=== PATIENT | female | born 1945 | race Caucasian/White ===

== ENCOUNTER 2019-09-28 06:00 | Outpatient (RCR) | payer MEDICARE, OTHER, SELFPAY | END 2019-10-28 00:01 | LOC: APT 06:00 | PROVIDERS: Visit Provider Psychiatry & Neurology Neurology | DX: M48.02 Spinal stenosis, cervical region (principal); M54.2 Cervicalgia | CPT/HCPCS: 97110 ×7; 97140 ×2; 97002 ==

== ENCOUNTER 2019-10-29 06:00 | Outpatient (RCR) | payer MEDICARE, OTHER, SELFPAY | END 2019-11-28 23:59 | disposition home or self-care (01) | LOC: APT 06:00 | PROVIDERS: Referring Provider Psychiatry & Neurology Neurology; Visit Provider Psychiatry & Neurology Neurology | DX: M48.02 Spinal stenosis, cervical region (principal) | CPT/HCPCS: 97002; 97110; 97530 ==

== ENCOUNTER → 2021-06-13 15:55 | Outpatient (BNVA) | payer MEDICARE, OTHER, SELFPAY | PROVIDERS: Visit Provider Nurse Practitioner Family | DX: Z20.822 Contact with and (suspected) exposure to COVID-19 (principal); J98.8 Other specified respiratory disorders | CPT/HCPCS: 87635 ==

== ENCOUNTER 2021-06-18 18:46 | Inpatient (IN) | payer MEDICARE, OTHER, SELFPAY ==
[2021-06-18] VITALS (14 sets, daily range): BP systolic 133–213; BP diastolic 85–102; PULSE 70–83; RESP 15–23; O2SAT 91–96; BMI 31.4
[2021-06-18 20:10] LABS: Add Urine Microscopic? NO; Basophils % 0.2 %; Charge for UA Resulting for Rev; Eosinophils # 0.1 10^3/uL (0.0-0.8); Eosinophils % 0.4 %; Hematocrit 42.7 % (37.0-47.0); Hemoglobin 14.4 g/dL (11.5-15.3); Lymphocytes # 1.1 10^3/uL (0.8-4.8); Lymphocytes % 8.8 %; Mean Corpuscular HGB Conc 33.7 g/dL (30.0-36.0); Mean Corpuscular Hemoglobin 30.4 pg (28.0-34.0); Mean Corpuscular Volume 90.1 fl (81-99); Mean Platelet Volume 9.2 fL (7.4-10.4); Monocytes # 1.1 10^3/uL (0.2-0.9); Monocytes % 8.5 %; Neutrophils # 10.15 10^3/uL (1.8-7.7); Nucleated Red Blood Cells % 0 %; Platelet Count 280 10^3/cmm (130-400); Red Blood Count 4.74 10^6/uL (4.1-5.3); Red Cell Distribution Width 12.7 % (12.1-15.1); White Blood Count 12.5 10^3/uL (4.0-10.0)
[2021-06-18 20:11] LABS: Bilirubin Urine Neg (Negative); Blood Urine Neg (Negative); Glucose Urine UA Norm (Normal); Ketones Urine Negative (Negative); Leukocyte Esterase Urine Negative (Negative); Nitrate Urine Negative (Negative); Protein Urine Neg (Negative); Specific Gravity, Urine 1.005 (1.005-1.030); Urine Appearance Clear (CLEAR); Urine Color Yellow (Yellow); Urobilinogen Urine Norm (Negative); pH Urine 7 (5-7)
[2021-06-18 20:21] LABS: Alanine Aminotransferase 11 U/L (0-33); Albumin Level 3.6 g/dL (3.5-5.2); Alkaline Phosphatase 107 IU/L (35-105); Anion Gap 17.2 (5-19); Aspartate Amino Transferase 20 U/L (0-32); Blood Urea Nitrogen 14 mg/dL (8-23); Calcium 8.3 mg/dL (8.5-10.5); Carbon Dioxide 23 mmol/L (22-29); Chloride 87 mmol/L (98-107); Creatinine Clr Calc Pharmacy 63.3292; Globulin 3.5 g/dL (1.3-4.6); Glucose 169 mg/dL (65-115); Osmolality Calculated 260 mOsm/kg (285-295); Potassium 4.2 mmol/L (3.5-5.1); Sodium 123 mmol/L (136-145); Total Bilirubin 0.4 mg/dL (0.15-1.2); Total Protein 7.1 g/dL (6.6-8.7)
[2021-06-18] MEDS: ondansetron 2 mg/ML SDV 2 mL 4 MG IVP (20:47)
--- NOTE | 2021-06-18 21:36 | W.ED.GENADLT ---
HPI - General Adult General: Chief complaint: Weakness Stated complaint: COVID +; WEAKNESS Time Seen by Provider: 06/18/21 19:16 History of Present Illness: HPI narrative: HPI: This is a [76] yo patient w/ no signifcant PMH presenting to the ED with COVID symptoms x 9 days (diagnosed 5 days ago). Patient denies any shortness of breath or dyspnea. Patient reports decreased PO intake, nausea and decreased appetite. Reports contact with covid positive patients. Denies cough, malaise, generalized weakness, chest pain, N/V, diaphoresis, exertional shortness of breath, or complaints. Denies any pleuritic chest pain, recent surgery/immobilization/travel, or hematemesis or hx of VTE in the past. Onset: 9 days ago Duration: ongoing for the last 9 days Location: home Severity: None Review of Systems Narrative: Constitutional: No subjective fever, no generalized weakness HEENT: No vision changes CV: No chest pain, no palpitations PULM: no cough, no dyspnea. GI: No abdominal pain, +N/-V/-D. +decreased appetite : No dysuria MSKEL: No muscle pain SKIN: No new rashes, no lesions. NEURO: No headache, no focal weakness. HEME: No visible bruises PSYCH: Normal mood PFSH ED PFSH: Social History Smoking and tobacco status: never smoked Second hand smoke exposure: No Smoking risk assessment/counseling performed?: Yes Alcohol intake: never Desire information about alcohol rehabilitation?: No Counseling given: Yes Desire information about substance/drug rehabilitation?: No Counseling given: Yes Adopted: No Caregiver/support person: No Lives independently: Yes Household members: spouse Housing: House Physical Exam Narrative: EXAM NARRATIVE: Head: Atraumatic Eyes: PERRL, conjunctiva without injection ENT: Mucous membrane moist NECK: Supple without lymphadenopathy LUNGS: Clear lung sounds, no crackles/wheezes/rhonchi on exam CV: RRR ABDOMEN: Soft, nontender in all quadrants, no guarding or rebound tenderness EXTREMITY: Normal ROM SKIN: No rash or erythema NEURO: Awake and alert. No focal motor deficits. PSYCH: Normal mood and affect. Course Vital Signs: Vital signs: Vital Signs Pulse Rate 75 06/18/21 21:43 Respiratory Rate 18 06/18/21 21:43 Blood Pressure 160/93 06/18/21 21:43 Pulse Oximetry 95 06/18/21 21:47 MDM - General Adult MDM Narrative: Medical decision making narrative: [76]yo patient presenting to the ED with request medication for nauea and decreased appetite. No increased work of breath or dyspnea. Intervention: zofran and PO challenge [9:48] On reassessment, patient continues to in in respiratory distress without any increased work of breathing. O2 sats occasionally dips to the low 90s. Offered oxygen at home but patient declined citnig that she has portable pulse ox at home and will come back to the ER if the number continues to be persistently below 95%. Patient tolerated p.o. after Zofran in the emergency room. No suspicion for other acute pathologies at this time. Discussed plan with patient who agrees today. Sodium is noted to be 123. I have discussed this finding with patient and offer admission however patient declined today. Patient is AAO x3, understands the implication of going home today including the need for oxygen and possible shortness of breath. Patient still elects to go home at this time. Disposition: Discharge. Strict return instructions discussed at bedside including any signs of respiratory distress, dehydration, persistent fever, or any new or concerning symptoms. Patient in agreement with the plan and reassures me that the patient will follow up a primary care provider in 24-48 hrs for revaluation for any concerns or other issues. Lab Data: Labs: Lab Results 06/18/21 06/18/21 06/18/21 Range/Units 19:50 19:50 19:50 WBC 12.5 H (4.0-10.0) 10^3/ uL RBC 4.74 (4.1-5.3) 10^6/u L Hgb 14.4 (11.5-15.3) g/dL Hct 42.7 (37.0-47.0) % MCV 90.1 (81-99) fl MCH 30.4 (28.0-34.0) pg MCHC 33.7 (30.0-36.0) g/dL RDW 12.7 (12.1-15.1) % Plt Count 280 (130-400) 10^3/c mm MPV 9.2 (7.4-10.4) fL Neut % (Auto) 81.0 % Lymph % (Auto) 8.8 % [place] % (Auto) 8.5 % Eos % (Auto) 0.4 % Baso % (Auto) 0.2 % Neut # (Auto) 10.15 H (1.8-7.7) 10^3/u L Lymph # (Auto) 1.1 (0.8-4.8) 10^3/u L [place] # (Auto) 1.1 H (0.2-0.9) 10^3/u L Eos # (Auto) 0.1 (0.0-0.8) 10^3/u L Baso # (Auto) 0.0 (0.0-0.1) 10^3/u L Nucleated RBC % (a uto) 0 % Nucleated RBCs # 0.0 /100WBC Sodium 123 L (136-145) mmol/L Potassium 4.2 (3.5-5.1) mmol/L Chloride 87 L (98-107) mmol/L Carbon Dioxide 23 (22-29) mmol/L Anion Gap 17.2 (5-19) BUN 14 (8-23) mg/dL Creatinine 0.6 (0.5-0.9) mg/dL GFR Calculation Not Reportable Glucose 169 H (65-115) mg/dL Calculated Osmolal ity 260 L (285-295) mOsm/k g Calcium 8.3 L (8.5-10.5) mg/dL Total Bilirubin 0.4 (0.15-1.2) mg/dL AST 20 (0-32) U/L ALT 11 (0-33) U/L Alkaline Phosphata se 107 H (35-105) IU/L Total Protein 7.1 (6.6-8.7) g/dL Albumin 3.6 (3.5-5.2) g/dL Globulin 3.5 (1.3-4.6) g/dL Urine Color Yellow (Yellow) Urine Appearance Clear (CLEAR) Urine pH 7 (5-7) Ur Specific Gravit y 1.005 (1.005-1.030) Urine Protein Neg (Negative) Urine Glucose (UA) Norm (Normal) Urine Ketones Negative (Negative) Urine Blood Neg (Negative) Urine Nitrate Negative (Negative) Urine Bilirubin Neg (Negative) Urine Urobilinogen Norm (Negative) mg/dL Ur Leukocyte [place] ase Negative (Negative) Discharge Plan Discharge Patient Disposition: Home Clinical Impression: COVID-19 Condition: Stable Prescriptions: New Zofran 4 mg tablet 4 mg PO Q8H PRN (Reason: nausea and vomiting) 4 Days RF: 0 No Action levofloxacin 500 mg tablet 500 mg PO DAILY 5 Days Qty: 5 RF: 0 albuterol sulfate [ProAir HFA] 90 mcg/actuation HFA aerosol inhaler 2 puff inhalation QID PRN (Reason: shortness of breath or wheezing) Qty: 6.7 RF: 0 benzonatate 200 mg capsule 200 mg PO TID PRN (Reason: cough) 10 Days Qty: 30 RF: 0 dexamethasone 6 mg tablet 6 mg PO DAILY 5 Days Qty: 5 RF: 0 Discharge Orders: Discharge ED (Routine); Ordered 06/18/21 Ordered By: Luciano Nuñez Referrals: Trace Javed MD [Primary Care Provider] - Discharge Diet: Usual diet Discharge Activity: Resume usual activity Patient Instructions: Severe Acute Respiratory Syndrome (SARS) (ED) Activity Restrictions/Additional Instructions: Followup with your PCP on 06/23. Please come back to the ED if you have any worsening symptoms of shortness of breath, fever/chill, nuasea/vomiting or any new or concerning symptoms. 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
--- NOTE | 2021-06-18 23:16 | PC.NURSE ---
while getting in wheelchair to leave patient complained she felt hot and lost consciousness. no fall, pulled to bed by staff. once on monitor, SR, HTN. reported to MD. EKG done, IV placed in right hand
[2021-06-18] MEDS: sodium chloride 0.9% 1,000 ML 999 ML IV (23:25)
[2021-06-19] VITALS (15 sets, daily range): BP systolic 135–170; BP diastolic 70–97; PULSE 74–92; RESP 16–24; TEMP 36.7–37.4; O2SAT 73–96
--- NOTE | 2021-06-19 02:30 | XRR_ITS ---
PROCEDURE INFORMATION: Exam: XR Chest Exam date and time: 06/19/2021 2:30 AM Age: 76 years old Clinical indication: Dyspnea; Additional info: SOB TECHNIQUE: Imaging protocol: XR of the chest. Views: 1 view. COMPARISON: No relevant prior studies available. FINDINGS: Lungs: There are low lung volumes. Otherwise, the lungs are clear. Pleural spaces: Unremarkable. No pleural effusion. No pneumothorax. Heart/Mediastinum: There is mild cardiomegaly. Bones/joints: Unremarkable. Soft tissues: Examination limited by body habitus. XR/XR chest 1V portable [id number] IMPRESSION: 1. Examination limited by body habitus. 2. Mild cardiomegaly. 3. There are low lung volumes. Otherwise, the lungs are clear.
[2021-06-19] MEDS: ondansetron 2 mg/ML SDV 2 mL 4 MG IVP (03:47)
--- NOTE | 2021-06-19 03:48 | P.HP_ITS ---
Providers/Chief Complaint Admitting Physician: Kim Joel Primary Care Provider: Trace Javed MD Chief Complaint: COVID +; WEAKNESS History of Present Illness Parris Pereira is a 76 year old female who presented to the emergency room with chief complaint of weakness. She was diagnosed with COVID-19 on June 13 with symptoms starting a few days before that. Her had contracted Covid first. She received her first dose of Moderna vaccine on June 06. Over the last few days she has been extremely weak. She andre not felt like eating or drinking much of anything and in fact has not taken in much oral intake. She may have some loss of taste and smell but she is not certain. She has had nausea and a few episodes of vomiting. Denied any diarrhea. She has had a mild cough but no shortness of breath. She has been watching her oxygen levels and they have not been low. She denies any chest pain. Denies sore throat or runny nose. She has not had any significant fevers that she is aware of. In the emergency room she received some Zofran and was given some oral liquids. Laboratory studies were checked and showed low sodium. She was initially offered consideration for admission but declined. She was being discharged from the emergency room and when she tried to get up she almost passed out. She was requiring assistance to stand and transfer. Her blood pressures were actually elevated as high as 200s over 100s around the time that this occurred. Given her near syncope, clinical dehydration, hyponatremia and hypertension, she is being admitted overnight for further evaluation and monitoring. Mrs. Pereira has been prescribed medications for her blood pressures in the past but has not been taking them regularly. She is also prescribed cholesterol medication. Review of Systems Const: Reports: body aches, change in appetite, fatigue and malaise; Denies: fever(s) or chills Eyes: Denies: blurry vision ENMT: Reports: other (loss of taste and smell); Denies: throat pain or nasal congestion Card: Reports: lightheadedness; Denies: chest pain, palpitations or edema Resp: Reports: dyspnea and non-productive cough; Denies: productive cough, wheezing, pain on inspiration, hemoptysis or chest congestion GI: Reports: nausea and vomiting; Denies: abdominal pain, hematemesis, diarrhea or constipation : Denies: difficulty voiding Musc: Reports: muscle weakness; Denies: joint redness, joint warmth or muscle cramps Skin/Breast: Denies: rash or sores Neuro: Reports: headache(s), weakness in extremities (general rather than focal) and dizziness; Denies: numbness in extremities, difficulty walking, difficulty communicating thoughts or involuntary movements Psych: Denies: anxiety Dennis/Lymph: Denies: easy bruising or easy bleeding Medications/Allergies Home Medications Medication Instructions Recorded Confirmed Last Taken Type albuterol sulfate 90 mcg/actuation 2 puff INHALATION QID PRN #6.7 g 06/13/21 06/13/21 Unknown Rx aerosol inhaler benzonatate 200 mg capsule 200 mg PO TID PRN 10 Days #30 cap 06/13/21 06/13/21 Unknown Rx dexamethasone 6 mg tablet 6 mg PO DAILY 5 Days #5 tab 06/13/21 06/13/21 Unknown Rx levofloxacin 500 mg tablet 500 mg PO DAILY 5 Days #5 tab 06/13/21 06/13/21 Unknown Rx ondansetron HCl [Zofran] 4 mg PO Q8H PRN 4 Days tab 06/18/21 Unknown Rx Allergies Allergy/AdvReac Type Severity Reaction Status Date / Time Penicillins Allergy Unknown Verified 06/13/21 16:04 Sulfa (Sulfonamide Allergy Unknown Verified 06/13/21 16:04 Antibiotics) PFSH Acute PFSH: Medical History (Updated 06/19/21 @ 07:55 by Kim Joel MD) 3 para 3 Hyperlipidemia Hypertension Osteoarthritis Surgical History (Updated 06/19/21 @ 07:48 by Kim Joel MD) History of hysterectomy Family History (Updated 06/19/21 @ 07:48 by Kim Joel MD) Denies family history of CAD (coronary artery disease) Social History (Updated 06/19/21 @ 04:46 by Kim Joel MD) Smoking and tobacco status: never smoked Second hand smoke exposure: No Alcohol intake: never Substance/Drug Use: never Adopted: No Caregiver/support person: No Lives independently: Yes Household members: spouse Housing: House Marital status: Vitals/I&O/Wt Last Vital Signs Pulse 80 06/19/21 03:21 Resp 20 H 06/19/21 03:21 BP 160/97 06/19/21 03:21 Pulse Ox 91 06/19/21 03:21 Weight last 48 hrs Weight 83.007 kg Physical Exam Narrative: EXAM NARRATIVE: Constitutional: alert, ill appearing HEENT: normocephalic, conjunctive are injected, nasopharynx without obvious rhinorrhea, mucous membranes dry Neck: supple Respiratory: Clear to auscultation bilaterally without any rales rhonchi or wheezes noted, not tachypneic nor with any retractions Cardiovascular: regular rhythm, no murmurs, 2+ radial pulses Abdomen: soft, non tender, positive bowel sounds Extremities: no edema, no cyanosis Skin: dry, no rashes or bruising Neuro: face symmetric, speech soft but clear, moves all extremities but is quite generally weak Psych: cooperative Data : 06/18/21 19:50 06/18/21 19:50 Other data: .. A&P Assessment and plan (1) Weakness generalized: Status: Acute (2) Near syncope: Status: Acute (3) Hyponatremia: Status: Acute (4) Dehydration: Status: Acute (5) Hypertension: Has been on medication in the past but not currently taking; may be related to steroid therapy started outpatient Status: Acute Qualifiers: Hypertension type: essential hypertension Qualified Code(s): I10 - Essential (primary) hypertension (6) COVID-19: Status: Acute (7) COVID-19 vaccine second dose not administered: Moderna 1st dose given 06/06/2021 Status: Acute Additional A&P Information Hyperglycemia without a history of diabetes, suspect due to steroids Observation admission Status post Regeneron 06/19 Received IV fluids in the emergency room, holding further fluids until repeat labs are done Serial cardiac enzymes and EKGs Telemetry monitoring Check orthostatics Had been on lisinopril and hczt in past for BP; will start on amlodipine currently given hyponatremia With hyperglycemia and hypertension, will hold further steroids for now Status post a 5-day course of oral Levaquin Recheck electrolytes Check inflammatory zafar Monitor for acute changes needing intervention Supportive care otherwise also with COVID though not in ED/admitted yet Plans discussed with patient and she was given an opportunity to answer questions Full Code Attestations Medical Necessity Statement*: Anticipate stay less than 2 midnights in this lady with COVID-19 who experienced a syncopal episode in the emergency room. She is quite weak and has been since her Covid started. She was noted to have significant elevation in blood pressures. She does have hypertension but does not look to have been on her medications recently. In addition she had a low sodium level. She will be jemima tored with plans as noted above. 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
--- NOTE | 2021-06-19 07:47 | ECG_ITS ---
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 Measurements Intervals [place] Rate: 91 P: 45 MI: 140 QRS: -4 QRSD: 91 T: 62 QT: 364 QTc: 450 Interpretive Statements SINUS RHYTHM INFERIOR MYOCARDIAL INFARCTION , PROBABLY OLD [40+ ms Q WAVE AND/OR ST/T ABNORMALITY IN II/aVF] No previous ECG available for comparison Electronically Signed On 06-20-2021 13:12:15 CDT by Michelle Hernandez M.D. [id number]
[2021-06-19] MEDS: enoxaparin 40 mg/0.4 mL Syringe SUBCUT (08:44)
[2021-06-19] MEDS: amlodipine 5 mg Tablet 2.5 MG PO (08:45)
[2021-06-19] MEDS: pantoprazole DR 40 mg Tablet PO (08:45)
--- NOTE | 2021-06-19 09:47 | ECG_ITS ---
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 Measurements Intervals [place] Rate: 88 P: 47 NC: 137 QRS: 5 QRSD: 89 T: 55 QT: 376 QTc: 455 Interpretive Statements SINUS RHYTHM POSSIBLE ANTERIOR MYOCARDIAL INFARCTION , PROBABLY OLD [30 ms Q WAVE IN V3/V4, OR R < 0.2 mV IN V4] INFERIOR MYOCARDIAL INFARCTION , PROBABLY OLD [40+ ms Q WAVE AND/OR ST/T ABNORMALITY IN II/aVF] Compared to ECG 06/19/2021 10:12:38 No significant changes Electronically Signed On 06-20-2021 13:27:14 CDT by Michelle Hernandez M.D. [email or web address] [id number]
[2021-06-19] MEDS: zinc gluconate 50 mg Tablet PO (09:57)
[2021-06-19] MEDS: cholecalciferol (vitamin D3) 1,000 unit Tablet 1000 UNIT PO (09:57)
[2021-06-19] MEDS: ascorbic acid 500 mg Tablet PO (09:57)
[2021-06-19] MEDS: dexamethasone 10 mg/mL INJ 6 MG IVP (10:35)
[2021-06-19 10:55] LABS: Basophils % 0.2 %; Hemoglobin 13.9 g/dL (11.5-15.3); Lymphocytes # 0.7 10^3/uL (0.8-4.8); Lymphocytes % 4.6 %; Mean Corpuscular HGB Conc 33.9 g/dL (30.0-36.0); Mean Corpuscular Hemoglobin 30.3 pg (28.0-34.0); Mean Corpuscular Volume 89.5 fl (81-99); Mean Platelet Volume 9.3 fL (7.4-10.4); Monocytes # 0.9 10^3/uL (0.2-0.9); Monocytes % 5.9 %; Neutrophils # 13.18 10^3/uL (1.8-7.7); Neutrophils % 88.2 %; Nucleated Red Blood Cells % 0 %; Platelet Count 252 10^3/cmm (130-400); Red Blood Count 4.58 10^6/uL (4.1-5.3); Red Cell Distribution Width 12.6 % (12.1-15.1); White Blood Count 14.9 10^3/uL (4.0-10.0)
--- NOTE | 2021-06-19 11:17 | PC.NURSE ---
patient was not able to stand. nurse present at that time
[2021-06-19 11:25] LABS: Troponin(5th) Baseline 8 ng/L (0-10)
[2021-06-19 11:54] LABS: NT Pro B Type Natriuretic Pept 197 pg/mL (0-450); Procalcitonin 0.06 ng/mL (0-0.5)
[2021-06-19 12:05] LABS: Anion Gap 20.8 (5-19); Blood Urea Nitrogen 10 mg/dL (8-23); C Reactive Protein 30.4 mg/L (0.0-4.9); Calcium 7.9 mg/dL (8.5-10.5); Carbon Dioxide 17 mmol/L (22-29); Chloride 85 mmol/L (98-107); Creatine Phosphokinase 45 U/L (26-192); Creatinine Clr Calc Pharmacy 63.3292; Ferritin 451 ng/mL (15-150); Glucose 141 mg/dL (65-115); Lactate Dehydrogenase 228 U/L (135-214); Magnesium 1.4 mg/dL (1.7-2.3); Osmolality Calculated 249 mOsm/kg (285-295); Phosphorus 2.2 mg/dL (2.5-4.5); Potassium 3.8 mmol/L (3.5-5.1)
[2021-06-19 12:18] LABS: Sodium 119 mmol/L (136-145)
[2021-06-19 12:22] LABS: Lactate (Lactic Acid level) 0.9 mmol/L (0.5-2.2)
--- NOTE | 2021-06-19 12:29 | PM.PN ---
Subjective Subjective: Interval history: 76-year-old female presented to emergency room with complaints of weakness. Diagnosed with COVID-19 June 13. Received 1 dose of Moderna on June 06. The patient was noted to have a near syncopal episode as well as low sodium and high PT. She continues to have significant weakness. Sodium slightly worse today. Afebrile Medications: Reviewed: Yes Vitals/I&O/Wt Last Vital Signs Temp 99.3 F 06/19/21 08:00 Pulse 90 06/19/21 11:30 Resp 22 H 06/19/21 08:00 BP 153/87 06/19/21 09:00 Pulse Ox 92 06/19/21 11:30 06/18/21 06/19/21 06/19/21 22:59 06:59 14:59 Intake Total 1060 / 1060 Balance 1060 / 1060 Weight last 48 hrs Weight 183 lb Physical Exam Const: GENERAL APPEARANCE: ill appearing ORIENTATION/CONSCIOUSNESS: Yes awake Chest: COMMONS NORMALS: normal inspection of the chest Resp: COMMON NORMALS: normal respiratory effort and No retractions Cardio: COMMON NORMALS: regular rate and regular rhythm RATE: regular rate RHYTHM: regular rhythm GI: COMMON NORMALS: Soft to palpation and non-tender PALPATION: Yes Soft to palpation and No Tenderness to palpation present (GI) Skin: COMMON NORMALS: no rashes or lesions noted GENERAL SKIN EXAM: no rashes or lesions noted Data : 06/19/21 10:25 06/19/21 10:25 Micro: Microbiology 06/19/21 10:31 Blood Culture - Preliminary Blood SPECIMEN COLLECTED 06/19/21 10:25 Blood Culture - Preliminary Blood SPECIMEN COLLECTED A&P Assessment and plan (1) COVID-19 vaccine second dose not administered: Status: Acute (2) Weakness generalized: Status: Acute (3) Hypertension: Status: Acute Qualifiers: Hypertension type: essential hypertension Qualified Code(s): I10 - Essential (primary) hypertension (4) Near syncope: Status: Acute (5) Dehydration: Status: Acute (6) Hyponatremia: Status: Acute (7) COVID-19: Status: Acute (8) Elevated INR: Status: Acute Additional A&P Information #weakness --likely multifactorial, including recent Covid 19 infection, hyponatremia, electrolyte abnormalities --add B12, folate level --PT --check TSH --receiving decadron #hyponatremia --add NS, add Salt tablets --repeat BMP this afternoon #hypophosphatemia --replace #hypomagnesemia --replace #Covid 19 infection --Status post Regeneron 06/19 --sats stable on RA, sats dropping during sleeping --add Vitamin D, C, Zinc #elevated PT --check INR, PTT --hold Lovenox Attestations Medical Necessity Statement*: Parris Pereira's hospital stay will require greater than 2 midnights for covid 19 Coding Level of Care Code Acute 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
[2021-06-19] MEDS: sodium chloride 0.9% 1,000 ML 75 ML IV (13:20)
--- NOTE | 2021-06-19 13:47 | ECG_ITS ---
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 Measurements Intervals [place] Rate: 82 P: 45 MT: 140 QRS: -5 QRSD: 94 T: 58 QT: 401 QTc: 471 Interpretive Statements SINUS RHYTHM LOW QRS VOLTAGE IN PRECORDIAL LEADS [QRS DEFLECTION < 1.0 mV IN CHEST LEADS] INFERIOR MYOCARDIAL INFARCTION , PROBABLY OLD [40+ ms Q WAVE AND/OR ST/T ABNORMALITY IN II/aVF] Compared to ECG 06/19/2021 11:25:18 Low QRS voltage now present Myocardial infarct finding still present Electronically Signed On 06-20-2021 13:21:49 CDT by Michelle Hernandez M.D. [id number]
[2021-06-19 14:29] LABS: D Dimer 1.37 ug/mIFEU (0-0.59); Fibrinogen 543 mg/dL (174-498); INR 1.04 (0.8-1.2); Partial Thromboplastin Time 35.3 SECONDS (23.9-36.7)
[2021-06-19 14:35] LABS: Troponin 5 2HR 9.37 ng/L (0-10); Troponin 5 2HR Delta 1.37 ABS# (0-10)
[2021-06-19 14:48] LABS: Folate Level 15.2 ng/mL (4.8-37.3)
[2021-06-19 14:49] LABS: Thyroid Stimulating Hormone 0.59 uIU/mL (0.27-4.20); Vitamin B12 722 pg/mL (232-1245)
[2021-06-19 17:15] LABS: Troponin 5 6HR 6.94 ng/L (0-10)
[2021-06-19 17:20] LABS: Blood Urea Nitrogen 10 mg/dL (8-23); Calcium 7.7 mg/dL (8.5-10.5); Carbon Dioxide 19 mmol/L (22-29); Chloride 89 mmol/L (98-107); Creatinine Clr Calc Pharmacy 63.3292; Glucose 236 mg/dL (65-115); Osmolality Calculated 259 mOsm/kg (285-295); Sodium 121 mmol/L (136-145)
[2021-06-19 17:25] LABS: Troponin 5 6HR Delta -1.06 ng/L (0-12)
[2021-06-19 17:27] LABS: Anion Gap 16.8 (5-19)
[2021-06-19 17:28] LABS: Potassium 3.8 mmol/L (3.5-5.1)
[2021-06-19] MEDS: magnesium oxide 400 mg tablet PO (18:19)
[2021-06-19] MEDS: sodium chloride 1 gm Tablet PO (18:19)
[2021-06-19] MEDS: phosphorus 250 mg Tablet PO (18:19)
[2021-06-20] VITALS (8 sets, daily range): BP systolic 141–158; BP diastolic 84–95; PULSE 72–94; RESP 18–26; TEMP 36.6–36.8; O2SAT 92–95
[2021-06-20] MEDS: sodium chloride 0.9% 1,000 ML 75 ML IV ×2 (01:49→17:58)
[2021-06-20 06:17] LABS: Basophils % 0.4 %; Eosinophils % 0.2 %; Hematocrit 40.6 % (37.0-47.0); Lymphocytes # 0.6 10^3/uL (0.8-4.8); Lymphocytes % 10.8 %; Mean Corpuscular Hemoglobin 30.2 pg (28.0-34.0); Mean Corpuscular Volume 94.2 fl (81-99); Mean Platelet Volume 9.6 fL (7.4-10.4); Monocytes # 0.5 10^3/uL (0.2-0.9); Monocytes % 9.7 %; Neutrophils # 4.32 10^3/uL (1.8-7.7); Neutrophils % 77.3 %; Nucleated Red Blood Cells % 0 %; Platelet Count 197 10^3/cmm (130-400); Red Blood Count 4.31 10^6/uL (4.1-5.3); Red Cell Distribution Width 12.8 % (12.1-15.1); White Blood Count 5.6 10^3/uL (4.0-10.0)
[2021-06-20 06:45] LABS: Alanine Aminotransferase 10 U/L (0-33); Albumin Level 2.8 g/dL (3.5-5.2); Alkaline Phosphatase 82 IU/L (35-105); Blood Urea Nitrogen 11 mg/dL (8-23); Carbon Dioxide 21 mmol/L (22-29); Chloride 95 mmol/L (98-107); Creatinine Clr Calc Pharmacy 63.3292; Globulin 3.2 g/dL (1.3-4.6); Glucose 184 mg/dL (65-115); Osmolality Calculated 264 mOsm/kg (285-295); Sodium 125 mmol/L (136-145); Total Bilirubin 0.3 mg/dL (0.15-1.2)
[2021-06-20 06:46] LABS: Anion Gap 13.2 (5-19); Aspartate Amino Transferase 19 U/L (0-32); Potassium 4.2 mmol/L (3.5-5.1)
[2021-06-20 07:02] LABS: C Reactive Protein 73.2 mg/L (0.0-4.9); Magnesium 1.6 mg/dL (1.7-2.3); Phosphorus 2.5 mg/dL (2.5-4.5)
--- NOTE | 2021-06-20 08:49 | PC.CHAP ---
Pastoral Care Encounter/Spiritual Assessment Type of Contact [] Declined dean of education visit [] Patient/Family/Request visit [] Outpatient visit [] Follow-up visit [] Physician referral [] Code/Alert [x] Routine visit [] Staff referral [] Actively dying [] Patient sleeping [] Family support [] [] Out of room [] Palliative care [] [] Receiving care in room [] Pre-surgical visit [] Trauma [] Long length of stay [] ICU visit x] Other: 2a Relational/Emotional Strength [] Patient feels connected with others/family/visitors/staff [] Distress [] Loneliness/isolation [] Abandonment Spirituality of Patient [] Person of Anisha [] Attends Methodist of their Anisha [] Believes in Prayer [] Reads Bible or Christianity materials [] There are Spiritual issues to be addressed Crate Builder Interventions [x] Prayer [] Active listening [] Non-anxious presence [] Spiritual/emotional support [] Crisis/trauma care [] Spiritual counseling [] Bereavement support [] Provided bereavement packet [] Provided Bible/devotional materials [] Provided toy/stuffed animal, coloring book to patient or family member [] Provided Communion [] Anointing/Sublimity [] Salvation [x] Completed spiritual assessment [] Other: Impact on Illness or Injury [] Angry [] Fearful [] Anxious [] Often cries [] Exhaustion [] Unable to work [] Unable to attend mandaen [] Unable to walk/stand [] Unable to read [] Unable to drive [] Unable to eat/drink [] Unable to sleep [] Unable to be with family [] Patient intubated [] Other: Summary served breakfast.... weak... Time spent with patient 5 min
[2021-06-20] MEDS: dexamethasone 10 mg/mL INJ 6 MG IVP (09:30)
[2021-06-20] MEDS: zinc gluconate 50 mg Tablet PO (09:31)
[2021-06-20] MEDS: amlodipine 5 mg Tablet 2.5 MG PO (09:31)
[2021-06-20] MEDS: phosphorus 250 mg Tablet PO ×2 (09:31→17:58)
[2021-06-20] MEDS: sodium chloride 1 gm Tablet PO ×2 (09:31→17:58)
[2021-06-20] MEDS: ascorbic acid 500 mg Tablet PO (09:31)
[2021-06-20] MEDS: cholecalciferol (vitamin D3) 1,000 unit Tablet 1000 UNIT PO (09:31)
[2021-06-20] MEDS: magnesium oxide 400 mg tablet PO ×3 (09:31→17:58)
[2021-06-20] MEDS: pantoprazole DR 40 mg Tablet PO (09:32)
--- NOTE | 2021-06-20 13:07 | P.PN_ITS ---
Subjective Subjective: Interval history: Patient was seen and examined this morning she was saturating well on room air, aspiratory therapist to do home O2 evaluation today, PT evaluation done today who recommended outpatient therapy and home health services to help her transition to outpatient, she is concerned her is sick at home as well No other complaints overnight, Vitals/I&O/Wt Last Vital Signs Temp 98.2 F 06/20/21 03:56 Pulse 80 06/20/21 12:17 Resp 18 06/20/21 12:17 BP 152/95 06/20/21 12:17 Pulse Ox 94 06/20/21 12:17 06/19/21 06/20/21 06/20/21 22:59 06:59 14:59 Intake Total 240 / 240 1176.25 / 1416.25 240 / 240 Output Total 700 / 700 500 / 500 Balance 240 / 240 476.25 / 716.25 -260 / -260 Weight last 48 hrs Weight 83.007 kg Physical Exam Narrative: EXAM NARRATIVE: Patient was sitting at her bedside No active complaints No acute respiratory distress bilateral breath sound without adventitious rhonchi or crackles S1, S2 Appropriate mood and affect Abdomen soft No neurological deficit Data : 06/20/21 05:22 06/20/21 05:22 Micro: Microbiology 06/19/21 10:25 Blood Culture - Preliminary Blood NEGATIVE TO DATE 06/19/21 10:31 Blood Culture - Preliminary Blood NEGATIVE TO DATE A&P Assessment and plan (1) COVID-19 vaccine second dose not administered: Status: Acute (2) Weakness generalized: Status: Acute (3) Hypertension: Status: Acute Qualifiers: Hypertension type: essential hypertension Qualified Code(s): I10 - Essential (primary) hypertension (4) Near syncope: Status: Acute (5) Dehydration: Status: Acute (6) Hyponatremia: Status: Acute (7) COVID-19: Status: Acute Additional A&P Information SubAcute COVID-19 Patient not requiring oxygen at rest Requested home O2 evaluation today along PT eval Patient's is sick with COVID-19 at home as well Did not receive remdesivir, continue Decadron and multivitamins Status post regneron on 06/19 Hyponatremia Sodium 125 today, 121 yesterday This seems secondary to use of hydrochlorothiazide and poor p.o. intake I would keep her on salt tablets for now she is endorsing improvement in appetite today No active diarrhea or emesis Still complaining of weakness had syncopal event with physical therapy evaluation few days ago Normal TSH Normal B12 and folate Hypomagnesemia: Repleted Syncope related to hyponatremia and weakness EKG without QT prolongation, sinus rhythm, D-dimer high patient is now requiring oxygen she is not tachycardic Will request CTA and venous Doppler DVT prophylaxis add Lovenox Regular diet Full code Attestations Medical Necessity Statement*: Anticipating discharge in next 48 hours Time Spent in Patient Care: 16 - 35 minutes Coding Level of Care Code Acute 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
--- NOTE | 2021-06-20 13:18 | CT_ITS ---
WS: [id number] CTA OF THE CHEST WITH PULMONARY EMBOLISM PROTOCOL TECHNIQUE: High-resolution contrast enhanced CTA of the chest with coronal and sagittal reformatted i mages with pulmonary embolism protocol. MIP images are also reviewed. CLINICAL INFORMATION: Syncope COMPARISON: None. DLP: 564.[address] scans at [facility] use at least one of these dose optimization techniques: automat ed exposure control; mA and/or kV adjustment per patient size (includes targeted exams where dose is matched to clinical indication); or iterative reconstruction. FINDINGS: Proximal main pulmonary arteries are normal. Normal segmental and subsegmental pulmonary arteries. No evidence of pulmonary embolus. Normal caliber thoracic aorta. No mediastinal or hilar lymphadenopath y. Mild perihilar bronchovascular thickening. Small esophageal hiatal hernia. Adrenal glands are normal. Gallbladder is contracted. Lungs are well aerated. Subsegmental atelectasis in the right greater than left lower lobes. No focal pneumonia or pleural fluid. CT/CT angio chest PE protcl [id number] IMPRESSION: 1. No evidence of pulmonary embolism. 2. Subsegmental atelectasis in the lung bases. 3. No focal pneumonia or pleural fluid.
--- NOTE | 2021-06-20 13:18 | USCV_ITS ---
RandallParris Age: 76 Gender: F : 1945 Exam Date: 06/20/2021 16:21 Ordering Phys: Mark Brizuela MD Technologist: Gin Henao [place]am Location[place] [facility] [place] Indication: R/O DVT HISTORY: Lower extremity swelling. PROCEDURES: Venous duplex imaging was performed in bilateral lower extremities. The following venous structures were evaluated: common femoral vein, profunda vein, proximal portion of the greater saphenous vein, superficial femoral vein, and the popliteal vein. In addition, the posterior tibial and peroneal trunk were evaluated. FINDINGS: Normal 2-D Doppler and augmentation and compressibility throughout the lower extremity venous structures. Additional imaging through the proximal calf veins also reveals no thrombus. Limited evaluation of the greater saphenous vein is patent with no thrombus.. CONCLUSIONS No evidence of right lower extremity DVT. No evidence of left lower extremity DVT. Esequiel Ricketts MD (Electronically Signed) Final Date: 20 June 2021 17:12 S
[2021-06-20] MEDS: lisinopril 10 mg Tablet PO (13:48)
[2021-06-20] MEDS: enoxaparin 40 mg/0.4 mL Syringe SUBCUT (13:48)
[2021-06-20] MEDS: iohexol 350 mg/mL 100 mL Btl IV (14:55)
[2021-06-21] VITALS (7 sets, daily range): BP systolic 141–173; BP diastolic 77–88; PULSE 71–77; RESP 17–21; TEMP 36.5–36.9; O2SAT 93–98
[2021-06-21 06:01] LABS: Anion Gap 12.5 (5-19); Blood Urea Nitrogen 12 mg/dL (8-23); C Reactive Protein 21.5 mg/L (0.0-4.9); Calcium 7.7 mg/dL (8.5-10.5); Carbon Dioxide 23 mmol/L (22-29); Chloride 98 mmol/L (98-107); Creatinine Clr Calc Pharmacy 63.3292; Glucose 192 mg/dL (65-115); Magnesium 1.7 mg/dL (1.7-2.3); Osmolality Calculated 275 mOsm/kg (285-295); Phosphorus 1.8 mg/dL (2.5-4.5); Potassium 3.5 mmol/L (3.5-5.1); Sodium 130 mmol/L (136-145)
[2021-06-21] MEDS: sodium chloride 0.9% 1,000 ML 75 ML IV (06:09)
--- NOTE | 2021-06-21 06:20 | PC.NURSE ---
Patient rested most of the night. No sentinel events occurred. Ready to go home. Will continue to monitor.
[2021-06-21] MEDS: dexamethasone 10 mg/mL INJ 6 MG IVP (08:27)
--- NOTE | 2021-06-21 08:37 | PC.CHAP ---
Pastoral Care Encounter/Spiritual Assessment Type of Contact [] Declined waiter/waitress dining car visit [] Patient/Family/Request visit [] Outpatient visit [] Follow-up visit [] Physician referral [] Code/Alert [x] Routine visit [] Staff referral [] Actively dying [] Patient sleeping [] Family support [] [] Out of room [] Palliative care [] [] Receiving care in room [] Pre-surgical visit [] Trauma [] Long length of stay [] ICU visit [x] Other: 2a... patient feeling stronger today... served breakfast Relational/Emotional Strength [] Patient feels connected with others/family/visitors/staff [] Distress [] Loneliness/isolation [] Abandonment Spirituality of Patient [] Person of Anisha [] Attends Restorationist of their Anisha [] Believes in Prayer [] Reads Bible or Quaker materials [] There are Spiritual issues to be addressed Store Host Interventions [x] Prayer [] Active listening [] Non-anxious presence [] Spiritual/emotional support [] Crisis/trauma care [] Spiritual counseling [] Bereavement support [] Provided bereavement packet [] Provided Bible/devotional materials [] Provided toy/stuffed animal, coloring book to patient or family member [] Provided Communion [] Anointing/[place] [] Salvation [x] Completed spiritual assessment [] Other: Impact on Illness or Injury [] Angry [] Fearful [] Anxious [] Often cries [] Exhaustion [] Unable to work [] Unable to attend uatsdin [] Unable to walk/stand [] Unable to read [] Unable to drive [] Unable to eat/drink [] Unable to sleep [] Unable to be with family [] Patient intubated [] Other: Summary Time spent with patient
[2021-06-21] MEDS: zinc gluconate 50 mg Tablet PO (09:01)
[2021-06-21] MEDS: cholecalciferol (vitamin D3) 1,000 unit Tablet 1000 UNIT PO (09:01)
[2021-06-21] MEDS: ascorbic acid 500 mg Tablet PO (09:02)
[2021-06-21] MEDS: amlodipine 5 mg Tablet 2.5 MG PO (09:02)
[2021-06-21] MEDS: pantoprazole DR 40 mg Tablet PO (09:02)
[2021-06-21] MEDS: lisinopril 10 mg Tablet PO (09:02)
[2021-06-21] MEDS: phosphorus 250 mg Tablet PO (09:02)
[2021-06-21] MEDS: sodium chloride 1 gm Tablet PO (09:02)
[2021-06-21] MEDS: magnesium oxide 400 mg tablet PO (09:02)
--- NOTE | 2021-06-21 11:32 | P.DS_ITS ---
Discharge Providers Date of Admission: 06/19/21 12:44 Date of Discharge: June 21, 2021 Attending Provider at Admission: Kim Joel MD Attending Provider at Discharge: Mark Brizuela MD Primary Care Provider: Trace Javed MD Diagnoses at Discharge Discharge Diagnosis (1) COVID-19 vaccine second dose not administered: Status: Acute Permanent problem details: Moderna 1st dose given 06/06/2021 (2) Weakness generalized: Status: Acute (3) Hypertension: Status: Acute Qualifiers: Hypertension type: essential hypertension Qualified Code(s): I10 - Essential (primary) hypertension (4) Near syncope: Status: Acute (5) Dehydration: Status: Acute (6) Hyponatremia: Status: Acute (7) COVID-19: Status: Acute Reason for Visit Reason for Visit: COVID +; WEAKNESS Hospital Course Hospital Course HPI done by Dr. Joel Parris Pereira is a 76 year old female who presented to the emergency room with chief complaint of weakness. She was diagnosed with COVID-19 on June 13 with symptoms starting a few days before that. Her had contracted Covid first. She received her first dose of Moderna vaccine on June 06. Over the last few days she has been extremely weak. She andre not felt like eating or drinking much of anything and in fact has not taken in much oral intake. She may have some loss of taste and smell but she is not certain. She has had nausea and a few episodes of vomiting. Denied any diarrhea. She has had a mild cough but no shortness of breath. She has been watching her oxygen levels and they have not been low. She denies any chest pain. Denies sore throat or runny nose. She has not had any significant fevers that she is aware of. In the emergency room she received some Zofran and was given some oral liquids. Laboratory studies were checked and showed low sodium. She was initially offered consideration for admission but declined. She was being discharged from the emergency room and when she tried to get up she almost passed out. She was requiring assistance to stand and transfer. Her blood pressures were actually elevated as high as 200s over 100s around the time that this occurred. Given her near syncope, clinical dehydration, hyponatremia and hypertension, she is being admitted overnight for further evaluation and monitoring. Mrs. Pereira has been prescribed medications for her blood pressures in the past but has not been taking them regularly. She is also prescribed cholesterol medication. Hospital course Patient was admitted for management of COVID-19 symptoms, generalized weakness, presyncopal event, hyponatremia. Her electrolyte imbalance was secondary to poor p.o. intake and use of hydrochlorothiazide. Patient denied emesis or diarrhea. She required salt tablets and use of normal saline fluid to bring her sodium around normal level. PT evaluation was done who deemed her stable to go home with home health services and outpatient PT referral was given as well. Her syncope was related to hyponatremia. Her D-dimer was high, CTA rule out PE no evidence of DVT. EKG showed sinus rhythm no QTC prolongation. She did not require oxygenation during hospitalization she was not given remdesivir. Her magnesium and phosphorus were repleted She will be discharged home with discontinuation of hydrochlorothiazide, she will be given salt tablets for next 5 days only Physical Exam Narrative: EXAM NARRATIVE: Patient was sitting at her bedside No active complaints No acute respiratory distress bilateral breath sound without adventitious rhonchi or crackles S1, S2 Appropriate mood and affect Abdomen soft No neurological deficit Discharge Data Data Completed and Pending: Completed Studies During Hospitalization Category Date Time Status CT angio chest PE protcl [id number] Rout ine Cat Scan 06/20/21 13:18 Completed XR chest 1V anupam ble [id number] Stat Exams 06/19/21 02:30 [place] [id number] Routin e Ultrasound 06/20/21 13:18 Completed Pending at discharge Category Date Time Status Blood Culture Rou jaylen Lab 06/19/21 10:31 Results Labs from last 24 hours 06/21/21 04:55 Sodium 130 L Potassium 3.5 Chloride 98 Carbon Dioxide 23 Anion Gap 12.5 BUN 12 Creatinine 0.5 GFR Calculation Not Reportable Glucose 192 H Calculated Osmolal ity 275 L Calcium 7.7 L Phosphorus 1.8 L Magnesium 1.7 C-Reactive Protein 21.5 H Vitals: Last Vital Signs Temp 97.8 F 06/21/21 07:44 Pulse 76 06/21/21 07:44 Resp 17 06/21/21 07:44 BP 173/88 06/21/21 07:44 Pulse Ox 98 06/21/21 07:44 Discharge Plan Discharge Patient Disposition: Home Condition: Stable Prescriptions: New Zofran 4 mg tablet 4 mg PO Q8H PRN (Reason: nausea and vomiting) 4 Days RF: 0 sodium chloride 1 gram Tablet 1 g PO BID 5 Days Qty: 10 RF: 0 lisinopril 10 mg Tablet 10 mg PO DAILY 30 Days Qty: 30 RF: 0 Phospha 250 Neutral 250 mg Tablet 250 mg PO BID 5 Days Qty: 10 RF: 0 Continued albuterol sulfate [ProAir HFA] 90 mcg/actuation HFA aerosol inhaler 2 puff inhalation QID PRN (Reason: shortness of breath or wheezing) Qty: 6.7 RF: 0 benzonatate 200 mg capsule 200 mg PO TID PRN (Reason: cough) 10 Days Qty: 30 RF: 0 atorvastatin 10 mg tablet 10 mg PO DAILY RF: 0 aspirin 81 mg Tablet,Chewable 81 mg PO DAILY RF: 0 Discontinued potassium chloride 10 mEq capsule, extended release 10 meq PO TID RF: 0 meloxicam 15 mg tablet 15 mg PO DAILY RF: 0 lisinopril-hydrochlorothiazide 10-12.5 mg tablet 1 tab PO DAILY RF: 0 Discharge Orders: Discharge Order (Routine); Ordered 06/21/21 Ordered By: Mark Brizuela Other Ambulatory Orders: DME: Walker (Order) Location: None Selected Ordered By: Mark Brizuela Physical Therapy Eval and Treat Outpatient (Order) Timeframe: 1 Month Facility: [facility] - Location: Physical Therapy [place] Ordered By: Mark Brizuela Referrals: Trace Javed MD [Primary Care Provider] - Discharge Diet: Usual diet Discharge Activity: Resume usual activity, Increase activity as tolerated and Use walker/crutches as instructed Patient Instructions: Ondansetron (By mouth), Hypertension, Severe Acute Respiratory Syndrome (SARS) (ED), Weakness (GEN), Opioid Safety Activity Restrictions/Additional Instructions: Followup with your PCP on 06/23. Please come back to the ED if you have any worsening symptoms of shortness of breath, fever/chill, nuasea/vomiting or any new or concerning symptoms. If you require oxygen for your drop in o2 saturation below 90%, come to Ed for oxygen tank you can quarantine for at least 20 days from day of onset of symptoms You can also get vaccination 90 days after the Covid infection your second dose will be delayed Discharge Attestations Time Spent in Discharge Care*: less than 30 min Quality Metrics Clinical Quality Measures During this hospital stay, did patient experience: None Coding Level of Care Code Acute Chg FW DC note Diagnoses COVID-19 vaccine second dose not administered Z28.9 Weakness generalized R53.1 Hypertension I10 Hypertension type: essential hypertension Near syncope R55 Dehydration E86.0 Hyponatremia E87.1 COVID-19 U07.1
--- NOTE | 2021-06-21 13:59 | PC.NURSE ---
Discharge Note Patient discharged to home with home health via wheelchair accompanied by family member. Discharge instructions reviewed with patient and/or passenger representative. Mobile pharmacy medications and/or prescriptions provided. Belongings/home medications returned.
== END 2021-06-21 13:55 | disposition home health service (06) | DRG 178 ==
LOC: ER 06-19 03:31 → MS 2A 06-19 03:57
PROVIDERS: Emergency Medicine; Internal Medicine; Admitting Provider Hospitalist; Emergency Provider Emergency Medicine; Visit Provider Internal Medicine
DX: U07.1 COVID-19 (principal); E87.1 Hypo-osmolality and hyponatremia; I10 Essential (primary) hypertension; E86.0 Dehydration; E83.42 Hypomagnesemia; E83.39 Other disorders of phosphorus metabolism; R11.0 Nausea; R73.9 Hyperglycemia, unspecified; R79.1 Abnormal coagulation profile; E78.5 Hyperlipidemia, unspecified; M19.90 Unspecified osteoarthritis, unspecified site; Z28.9 Immunization not carried out for unspecified reason
CPT/HCPCS: 36415; 71045; 71275; 80048; 80053; 81003; 82550; 82607; 82728; 82746; 83605; 83615; 83735; 83880; 84100; 84145; 84443; 84484; 85025; 85378; 85384; 85610; 85730; 86140; 87040; 93005; 93970; 96372; 96374; 97163; 99285; G0378; J1100; J1650; J2405; J7030; Q9967

== ENCOUNTER 2021-09-01 14:12 | Emergency (ER) | payer MEDICARE, OTHER, SELFPAY ==
[2021-09-01 14:19] VITALS: PULSE 98; RESP 16; TEMP 36.6; O2SAT 96; BMI 30.2
[2021-09-01 14:26] VITALS: BP 151/93; PULSE 73; PULSE 77; RESP 19; O2SAT 96
--- NOTE | 2021-09-01 14:26 | ECG_ITS ---
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 Measurements Intervals [place] Rate: 91 P: 58 NE: 140 QRS: 10 QRSD: 90 T: 49 QT: 382 QTc: 472 Interpretive Statements SINUS RHYTHM LOW QRS VOLTAGE IN PRECORDIAL LEADS [QRS DEFLECTION < 1.0 mV IN CHEST LEADS] POSSIBLE INFERIOR MYOCARDIAL INFARCTION , PROBABLY OLD [30 ms Q WAVE IN II/aVF] Compared to ECG 06/19/2021 15:11:08 No significant changes Electronically Signed On 09-01-2021 17:07:10 CDT by Abdulkadir Flower M.D. [email or web address] Technologiesselect medical [facility]/store/NU/[id number] f
--- NOTE | 2021-09-01 14:26 | XR_ITS ---
WS: [id number] Portable AP upright chest, 09/01/2021 Clinical Data: fall Comparison: Portable chest, 06/19/2021. Findings: No nodules, masses or effusions are seen. The heart is normal. The pulmonary vascularity is not increased. No pneumonia or pneumothorax is seen. The aortic arch and descending thoracic aorta s how tortuosity. XR/XR chest 1V portable [id number] Impression: Atherosclerosis.
--- NOTE | 2021-09-01 14:26 | CT_ITS ---
WS: [id number] CT HEAD TECHNIQUE: Noncontrast CT of the head obtained from the skullbase to the vertex. CLINICAL INFORMATION: Symptoms of Acute Stroke COMPARISON: None. DLP: 921.[address] scans at [facility] use at least one of these dose optimization techniques: automated e xposure control; mA and/or kV adjustment per patient size (includes targeted exams where dose is matc hed to clinical indication); or iterative reconstruction. FINDINGS: No evidence of intracranial hemorrhage or mass effect. Ventricular system and basal cisterns are james nt. Mild small vessel changes with moderate parenchymal volume loss. No extra-axial fluid collections . No evidence of mass or mass effect. Intracranial vascular calcification. Paranasal sinuses and mastoid air cells are well aerated. .Normal visualized soft tissues. CT/CT head wo con* [id number] IMPRESSION: 1. No evidence of intracranial hemorrhage or mass effect. 2. Mild small vessel changes. Moderate parenchymal volume loss. 3. No acute intracranial findings.
--- NOTE | 2021-09-01 14:29 | W.ED.GENADLT ---
HPI - General Adult General: Chief complaint: Neuro Symptoms/Deficit Stated complaint: L SIDED WEAKNESS Time Seen by Provider: 09/01/21 14:22 History of Present Illness: HPI narrative: Patient is a 76-year-old female with a history of hyperlipidemia, hypertension who presents the emergency room with complaints of left-sided weakness since waking up at 640 today. Patient denies any loss of power in the arms or legs however has been feeling left-sided weakness. Patient is able to ambulate without any difficulty. Patient has one episode where she fell down onto her left side. Patient describes a pulling sensation on the left side. Patient has no associated chest pain, shortness breath, palpitation, lightheadedness at this time. Denies any nausea/vomiting, abdominal pains diarrhea, melena hematochezia, or any other issues. EMS was alerted. NIHSS score of 0 currently. Onset:6:40am Duration: ongoing Location: home Severity: moderate Review of Systems Narrative: Constitutional: No fever, no chills. HEENT: No vision changes CV: No chest pain, no palpitations PULM: no cough, no dyspnea. GI: No abdominal pain, no N/V/D. : No dysuria MSKEL: No muscle pain, +L sided weakness SKIN: No new rashes, no lesions. NEURO: No headache, no focal weakness. HEME: No visible bruises PSYCH: Normal mood PFS ED PFSH: Medical History (Updated 09/01/21 @ 14:31 by Luciano Nuñez MD) COVID-19 Dehydration 3 para 3 Hyperlipidemia Hypertension Hyponatremia Osteoarthritis Surgical History (Updated 06/19/21 @ 07:48 by Kim Joel MD) History of hysterectomy Family History (Updated 06/19/21 @ 07:48 by Kim Joel MD) Denies family history of CAD (coronary artery disease) Social History (Updated 06/19/21 @ 04:46 by Kim Joel MD) Smoking and tobacco status: never smoked Second hand smoke exposure: No Alcohol intake: never Adopted: No Caregiver/support person: No Lives independently: Yes Household members: spouse Housing: House Marital status: Female Reproductive History: Date of last menstrual period: 06/19/21 Physical Exam Narrative: EXAM NARRATIVE: Head: Atraumatic Eyes: PERRL, conjunctiva without injection ENT: Mucous membrane moist NECK: Supple, ROM intact LUNGS: LCTAB, no crackles/rhonchi CV: RRR ABDOMEN: Soft, nontender in all quadrants EXTREMITY: Normal ROM SKIN: No rash or erythema NEURO: Mental status? Awake, alert, and oriented to self, year, month, location, and situation.? Following simple axial and appendicular commands.? Has appropriate fund of knowledge, comprehension, and insight.? Able to recall and understands pertinent aspects of medical history and current treatment status.? ? Language? Speech is fluent without word-finding difficulties.? 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 ? Cranial nerves? 2,3,4,6: PERRL, EOMI with no nystagmus. 5: Intact sensation to light touch, symmetric? 7: Smile symmetrical, no facial droop.? 8: Hearing grossly intact.? 9,10: Normal palate movement.? 11: Normal strength in trapezius bilaterally 12: Tongue protrudes midline.? ? Motor examination? Normal bulk & tone. Strength as follows (R/L): Delts (5/5), Biceps (5/5), Triceps (5/5), Wrist ext (5/5), hip flexors (5/5), plantarflexors (5/5), dorsiflexors (5/5). ? Sensation? Light Touch: Grossly intact and equal in upper and lower extremities bilaterally? Romberg: Negative.? Distal joint position sense intact ? Coordination? [id number]-finger movements intact without dysmetria or past-pointing.? Rapid fingertaps: preserved amplitude without decriment.? No tremor, myoclonus or truncal ataxia.? ? Gait/stance? Steady, normal narrow base gait with appropriate arm swing and turning.? Tandem gait without hesitation or loss of balance. PSYCH: Normal mood and affect Course Vital Signs: Vital signs: Vital Signs Temperature 97.8 F 09/01/21 14:19 Pulse Rate 77 09/01/21 14:26 Respiratory Rate 19 H 09/01/21 14:26 Blood Pressure 151/93 09/01/21 14:26 Pulse Oximetry 96 09/01/21 14:26 MDM - General Adult MDM Narrative: Medical decision making narrative: 76-year-old female with history hypertension, hyperlipidemia presented to emergency room with complaints left-sided weakness. On exam, patient's NIH stroke scale of 0. Rest of exam within normal limit. Work-up including CT brain, CTA head and neck, basic blood work, EKG CT brain, CTAhead/neck did not show any signs any focal findings. Lab work-up within normal. Patient will be admitted to hospital for TIA workup. Around 4:39 PM, patient and his son tells me that they would like to go to [place] for further evaluation. We attempted to reach [place] transfer center was informed that there is no emergency room or medicine bed at this time. Upon discussing this, the patient and his son still elects to leave today. I have explained the risk including possible strokes, brain bleed, even . This time, family verbalizes understanding of these risks and still elects to leave against medical richter citing desire to do so because her daughter is in [place]. Lab Data: Labs: Lab Results 09/01/21 09/01/21 09/01/21 14:32 14:32 14:32 WBC Cancelled Corrected WBC Cancelled RBC Cancelled Hgb Cancelled Hct Cancelled MCV Cancelled MCH Cancelled MCHC Cancelled RDW Cancelled Plt Count Cancelled MPV Cancelled Gran % Cancelled Neut % (Auto) Cancelled Lymph % (Auto) Cancelled Warrick % (Auto) Cancelled Eos % (Auto) Cancelled Baso % (Auto) Cancelled Neut # (Auto) Cancelled Lymph # (Auto) Cancelled Warrick # (Auto) Cancelled Eos # (Auto) Cancelled Baso # (Auto) Cancelled Absolute Gran (aut o) Cancelled Nucleated RBC % (a uto) Cancelled Nucleated RBCs # Cancelled PT 13.00 SECONDS SEC ONDS (12.1-14.9) INR 0.95 (0.8-1.2) APTT 23.0 SECONDS L SE CONDS (23.9-36.7) Sodium 136 mmol/L mmol/L (136-145) Potassium 4.1 mmol/L mmol/L (3.5-5.1) Chloride 100 mmol/L mmol/L (98-107) Carbon Dioxide 25 mmol/L mmol/L (22-29) Anion Gap 15.1 (5-19) BUN 11 mg/dL mg/dL (8-23) Creatinine 0.5 mg/dL mg/dL (0.5-0.9) GFR Calculation Not Reportable Glucose 137 mg/dL H mg/dL (65-115) POC Glucose Calculated Osmolal ity 284 mOsm/kg L mOs m/kg (285-295) Calcium 9.8 mg/dL mg/dL (8.5-10.5) Total Bilirubin 0.3 mg/dL mg/dL (0.15-1.2) AST 18 U/L U/L (0-32) ALT 11 U/L U/L (0-33) Alkaline Phosphata se 129 IU/L H IU/L (35-105) Troponin T Baselin e Total Protein 7.6 g/dL g/dL (6.6-8.7) Albumin 4.3 g/dL g/dL (3.5-5.2) Globulin 3.3 g/dL g/dL (1.3-4.6) Urine Color Urine Appearance Urine pH Ur Specific Gravit y Urine Protein Urine Glucose (UA) Urine Ketones Urine Blood Urine Nitrate Urine Bilirubin Prot Sulfosalicyli c Acd Urine Urobilinogen Ur Leukocyte Katlin ase 09/01/21 09/01/21 09/01/21 14:32 14:35 16:09 WBC 7.9 10^3/uL 10^3/ uL (4.0-10.0) Corrected WBC RBC 4.13 10^6/uL 10^6 /uL (4.1-5.3) Hgb 12.6 g/dL g/dL (11.5-15.3) Hct 38.4 % % (37.0-47.0) MCV 93.0 fl fl (81-99) MCH 30.5 pg pg (28.0-34.0) MCHC 32.8 g/dL g/dL (30.0-36.0) RDW 13.3 % % (12.1-15.1) Plt Count 330 10^3/cmm 10^3 /cmm (130-400) MPV 9.4 fL fL (7.4-10.4) Gran % Neut % (Auto) 75.8 % % Lymph % (Auto) 18.1 % % Warrick % (Auto) 4.6 % % Eos % (Auto) 1.1 % % Baso % (Auto) 0.3 % % Neut # (Auto) 6.00 10^3/uL 10^3 /uL (1.8-7.7) Lymph # (Auto) 1.4 10^3/uL 10^3/ uL (0.8-4.8) Warrick # (Auto) 0.4 10^3/uL 10^3/ uL (0.2-0.9) Eos # (Auto) 0.1 10^3/uL 10^3/ uL (0.0-0.8) Baso # (Auto) 0.0 10^3/uL 10^3/ uL (0.0-0.1) Absolute Gran (aut o) Nucleated RBC % (a uto) 0 % % Nucleated RBCs # 0.0 /100WBC /100W BC PT INR APTT Sodium Potassium Chloride Carbon Dioxide Anion Gap BUN Creatinine GFR Calculation Glucose POC Glucose Calculated Osmolal ity Calcium Total Bilirubin AST ALT Alkaline Phosphata se Troponin T Baselin e 7 ng/L ng/L (0-10) Total Protein Albumin Globulin Urine Color Straw (Yellow) Urine Appearance Clear (CLEAR) Urine pH 7 (5-7) Ur Specific Gravit y 1.005 (1.005-1.030) Urine Protein Neg (Negative) Urine Glucose (UA) Norm (Normal) Urine Ketones Negative (Negative) Urine Blood Neg (Negative) Urine Nitrate Negative (Negative) Urine Bilirubin Neg (Negative) Prot Sulfosalicyli c Acd Negative (Negative) Urine Urobilinogen Norm mg/dL mg/dL (Negative) Ur Leukocyte Katlin ase Negative (Negative) 09/01/21 16:38 WBC Corrected WBC RBC Hgb Hct MCV MCH MCHC RDW Plt Count MPV Gran % Neut % (Auto) Lymph % (Auto) Warrick % (Auto) Eos % (Auto) Baso % (Auto) Neut # (Auto) Lymph # (Auto) Warrick # (Auto) Eos # (Auto) Baso # (Auto) Absolute Gran (aut o) Nucleated RBC % (a uto) Nucleated RBCs # PT INR APTT Sodium Potassium Chloride Carbon Dioxide Anion Gap BUN Creatinine GFR Calculation Glucose POC Glucose 122 mg/dL H mg/dL (70-110) Calculated Osmolal ity Calcium Total Bilirubin AST ALT Alkaline Phosphata se Troponin T Baselin e Total Protein Albumin Globulin Urine Color Urine Appearance Urine pH Ur Specific Gravit y Urine Protein Urine Glucose (UA) Urine Ketones Urine Blood Urine Nitrate Urine Bilirubin Prot Sulfosalicyli c Acd Urine Urobilinogen Ur Leukocyte Katlin ase Imaging Data^: Other Imaging: [facility] [place], [place] [address]QE Scan ReportSigned Patient: Vero Pereira #: [id number]: [id number]#:[id number]/Sex: 76 / FADM Date: 09/01/21Loc: ERRoom/Bed:Attending Dr: Ordering Provider/Ordering MD: Luciano Nuñez MD Date of Service: 09/01/21 Procedure(s): CT angio headneck* [id number] Accession Number(s): [id number] Report Number: [id number] WS: [id number] CTA HEAD AND NECK TECHNIQUE: Contrast enhanced CTA of the head and neck with coronal and sagittal reformatted images and maximum intensity projection (MIP) images. NASCET criteria utilized. CLINICAL INFORMATION: ACUTE STROKE SYMPTOMS COMPARISON: None. DLP: 2083.[address] [facility] use at least one of these dose optimization techniques: automated exposure control; mA and/or kV adjustment per patient size (includes targeted exams where dose is matched to clinical indication); or iterative reconstruction. FINDINGS: RIGHT: Right common carotid artery is patent. Mild atheromatous plaque right carotid bulb. No significant right ICA stenosis. ICA is patent to the skull base. LEFT: Left common carotid artery is patent. Left common carotid artery is patent. Moderate calcified atheromatous plaque left carotid bulb extending into the ICA without significant stenosis. Less than 50% left ICA stenosis. Left ICA is patent to the skull base. INTRACRANIAL CTA: Small right vertebral artery. Left vertebral artery is patent. Proximal basilar artery is patent. Normal vascularity to the ROCKET ASSEMBLY OPERATOR territory bilaterally. Both ICAs are patent at the skull base. Mild cavernous carotid calcification. Normal vascularity to the RANJEET and MCA territories bilaterally. No evidence of flow-limiting stenosis or aneurysm. Small right A1 segment. Paranasal sinuses and mastoid air cells well aerated. Lung apices are well aerated. Normal posterior nasopharynx. Normal parapharyngeal fat. Mild spondylitic changes cervical spine. CT/CT angio headneck* [id number] IMPRESSION: 1. No evidence of intracranial flow-limiting stenosis or aneurysm. 2. No significant right ICA stenosis. Right ICA is patent to the skull base. 3. Moderate calcified atheromatous disease left carotid bulb without significant stenosis. Less than 50% left ICA stenosis. Left ICA is patent to the skull base. 4. Left dominant vertebral artery. Both vertebral arteries are patent. Attempted notification Luciano Nuñez MD at 09/01/2021 3:05 PM. Dictated By:Esequiel Ricketts MDSigned By:Esequiel Ricketts MDSigned Date/Time:09/01/21 1507DD/ 1455 [facility] [place], [place] [address]XV Scan ReportSigned Patient: Vero Pereira #: [id number]: [id number]#:[id number]/Sex: 76 / FADM Date: 09/01/21Loc: ERRoom/Bed:Attending Dr: Ordering Provider/Ordering MD: Luciano Nuñez MD Date of Service: 09/01/21 Procedure(s): CT head wo con* [id number] Accession Number(s): [id number] Report Number: [id number] WS: [id number] CT HEAD TECHNIQUE: Noncontrast CT of the head obtained from the skullbase to the vertex. CLINICAL INFORMATION: Symptoms of Acute Stroke COMPARISON: None. DLP: 921.[address] scans at [facility] use at least one of these dose optimization techniques: automated exposure control; mA and/or kV adjustment per patient size (includes targeted exams where dose is matched to clinical indication); or iterative reconstruction. FINDINGS: No evidence of intracranial hemorrhage or mass effect. Ventricular system and basal cisterns are patent. Mild small vessel changes with moderate parenchymal volume loss. No extra-axial fluid collections. No evidence of mass or mass effect. Intracranial vascular calcification. Paranasal sinuses and mastoid air cells are well aerated. .Normal visualized soft tissues. CT/CT head wo con* [id number] IMPRESSION: 1. No evidence of intracranial hemorrhage or mass effect. 2. Mild small vessel changes. Moderate parenchymal volume loss. 3. No acute intracranial findings. Dictated By:Esequiel Ricketts MDSigned By:Esequiel Ricketts MDSigned Date/Time:09/01/21 1453DD/ 1449 Discharge Plan Discharge Patient Disposition: Left Against Medical Advice Clinical Impression: Left-sided weakness Condition: Stable Prescriptions: No Action albuterol sulfate [ProAir HFA] 90 mcg/actuation HFA aerosol inhaler 2 puff inhalation QID PRN (Reason: shortness of breath or wheezing) Qty: 6.7 RF: 0 benzonatate 200 mg capsule 200 mg PO TID PRN (Reason: cough) 10 Days Qty: 30 RF: 0 atorvastatin 10 mg tablet 10 mg PO DAILY RF: 0 aspirin 81 mg Tablet,Chewable 81 mg PO DAILY RF: 0 Discharge Orders: Discharge ED (Routine); Ordered 09/01/21 Ordered By: Luciano Nuñez Referrals: Trace Javed MD [Referring] - Coding Level of Care Code ED Electrical Assemblies Supervisor for Ga Lin
--- NOTE | 2021-09-01 14:39 | CT_ITS ---
WS: [id number] CTA HEAD AND NECK TECHNIQUE: Contrast enhanced CTA of the head and neck with coronal and sagittal reformatted images an d maximum intensity projection (MIP) images. NASCET criteria utilized. CLINICAL INFORMATION: ACUTE STROKE SYMPTOMS COMPARISON: None. DLP: 2083.[address] scans at [facility] use at least one of these dose optimization techniques: automated e xposure control; mA and/or kV adjustment per patient size (includes targeted exams where dose is matc hed to clinical indication); or iterative reconstruction. FINDINGS: RIGHT: Right common carotid artery is patent. Mild atheromatous plaque right carotid bulb. No signifi cant right ICA stenosis. ICA is patent to the skull base. LEFT: Left common carotid artery is patent. Left common carotid artery is patent. Moderate calcified atheromatous plaque left carotid bulb extending into the ICA without significant stenosis. Less than 50% left ICA stenosis. Left ICA is patent to the skull base. INTRACRANIAL CTA: Small right vertebral artery. Left vertebral artery is patent. Proximal basilar artery is patent. Nor mal vascularity to the DAIRY TRUCK DRIVER territory bilaterally. Both ICAs are patent at the skull base. Mild cavernous carotid calcification. Normal vascularity to t he RANJEET and MCA territories bilaterally. No evidence of flow-limiting stenosis or aneurysm. Small righ t A1 segment. Paranasal sinuses and mastoid air cells well aerated. Lung apices are well aerated. Normal posterior nasopharynx. Normal parapharyngeal fat. Mild spondylitic changes cervical spine. CT/CT angio headneck* [id number] IMPRESSION: 1. No evidence of intracranial flow-limiting stenosis or aneurysm. 2. No significant right ICA stenosis. Right ICA is patent to the skull base. 3. Moderate calcified atheromatous disease left carotid bulb without significa nt stenosis. Less than 50% left ICA stenosis. Left ICA is patent to the skull b ase. 4. Left dominant vertebral artery. Both vertebral arteries are patent. Attempted notification Luciano Nuñez MD at 09/01/2021 3:05 PM.
[2021-09-01 14:43] LABS: Add Urine Microscopic? NO; Bilirubin Urine Neg (Negative); Blood Urine Neg (Negative); Glucose Urine UA Norm (Normal); Ketones Urine Negative (Negative); Leukocyte Esterase Urine Negative (Negative); Nitrate Urine Negative (Negative); Protein Urine Neg (Negative); Specific Gravity, Urine 1.005 (1.005-1.030); Sulfosalicylic Acid Urine Negative (Negative); Urine Appearance Clear (CLEAR); Urine Color Straw (Yellow); Urobilinogen Urine Norm (Negative); pH Urine 7 (5-7)
[2021-09-01 14:44] LABS: Charge for UA Resulting for Rev
[2021-09-01] MEDS: iodixanol 320 mg/mL 100mL Btl IV (14:45)
[2021-09-01 15:09] LABS: INR 0.95 (0.8-1.2)
[2021-09-01 15:46] LABS: Troponin(5th) Baseline 7 ng/L (0-10)
[2021-09-01 15:48] LABS: Alanine Aminotransferase 11 U/L (0-33); Albumin Level 4.3 g/dL (3.5-5.2); Alkaline Phosphatase 129 IU/L (35-105); Anion Gap 15.1 (5-19); Aspartate Amino Transferase 18 U/L (0-32); Blood Urea Nitrogen 11 mg/dL (8-23); Calcium 9.8 mg/dL (8.5-10.5); Carbon Dioxide 25 mmol/L (22-29); Chloride 100 mmol/L (98-107); Globulin 3.3 g/dL (1.3-4.6); Glucose 137 mg/dL (65-115); Osmolality Calculated 284 mOsm/kg (285-295); Potassium 4.1 mmol/L (3.5-5.1); Sodium 136 mmol/L (136-145); Total Bilirubin 0.3 mg/dL (0.15-1.2); Total Protein 7.6 g/dL (6.6-8.7)
--- NOTE | 2021-09-01 16:24 | PC.NURSE ---
Pt requesting to be transferred to [facility] for continuation of care. Dr. Nuñez advised and will talk with pt.
[2021-09-01 16:35] LABS: Basophils % 0.3 %; Eosinophils # 0.1 10^3/uL (0.0-0.8); Eosinophils % 1.1 %; Hematocrit 38.4 % (37.0-47.0); Hemoglobin 12.6 g/dL (11.5-15.3); Lymphocytes # 1.4 10^3/uL (0.8-4.8); Lymphocytes % 18.1 %; Mean Corpuscular HGB Conc 32.8 g/dL (30.0-36.0); Mean Corpuscular Hemoglobin 30.5 pg (28.0-34.0); Mean Platelet Volume 9.4 fL (7.4-10.4); Monocytes # 0.4 10^3/uL (0.2-0.9); Monocytes % 4.6 %; Neutrophils % 75.8 %; Nucleated Red Blood Cells % 0 %; Platelet Count 330 10^3/cmm (130-400); Red Blood Count 4.13 10^6/uL (4.1-5.3); Red Cell Distribution Width 13.3 % (12.1-15.1); White Blood Count 7.9 10^3/uL (4.0-10.0)
[2021-09-01 16:41] LABS: Glucose Point of Care 122 mg/dL (70-110)
--- NOTE | 2021-09-01 16:42 | PC.NURSE ---
pts blood glucose , Dr. Nuñez advised. Pt states she is not willing to stay and be admitted at this time, she is leaving AMA with son.
[2021-09-01 17:02] LABS: Troponin 5 2HR 7.83 ng/L (0-10); Troponin 5 2HR Delta 0.83 ABS# (0-10)
== END 2021-09-01 17:15 | disposition left against medical advice (07) ==
PROVIDERS: Emergency Provider Emergency Medicine
DX: R53.1 Weakness (principal); Z53.29 Procedure and treatment not carried out because of patient's decision for other reasons
CPT/HCPCS: 36416; 70450; 70496; 70498; 71045; 80053; 81003; 82962; 84484; 85025; 85610; 85730; 93005; 99284; 99291; Q9967